=== PATIENT | female | born 1985 | race Caucasian/White ===

== ENCOUNTER 2019-11-10 08:53 | Outpatient (CLI) | payer OTHER ==
--- NOTE | 2019-11-10 09:20 | ULT ---
ULTRASOUND RETROPERITONEUM COMPLETE: (RENAL) DATE: 11/10/2019 HISTORY: Posterior and persistent hematuria in 34-year-old female FINDINGS: The right kidney measures 10.5 x 5.5 x 6.5 cm. The left kidney measures 11.5 x 5 x 5.5 cm. Both kidneys have normal parenchymal echogenicity. There is no hydronephrosis. No moderate sized or large renal cystic or solid renal lesion is identified. Cursory images of the urinary bladder demonstrate no gross abnormality. Prevoid bladder volume 40 mL. IMPRESSION: Normal
--- NOTE | 2019-11-10 10:38 | RAD ---
XR Cysto Urethrogram Voiding History: Urethral diverticulum Comparison: None. Findings: Patient was brought to the fluoroscopy suite. All questions were answered. The patient's urinary bladder was instilled retrograde with 150 cc of contrast. The patient was unabl e tolerate any more contrast within the urinary bladder. The patient was unable to void in real-time during fluoroscopy and had to go to the bathroom multiple times to evacuate the bladder. After the first attempt at bladder evacuation away from the fluoroscopy table and upon returning, there is a right-sided urethral diverticulum containing contras t which measures approximately 3 cm in size. Upon a second attempt at voiding in the bathroom and returning, there is a second diverticulum this time on the left side of the urethra as felt to be sep arate instead of a small projection from the dominant right diverticulum. This small diverticulum measures approximately 1 cm in size. Impression: Limited examination as the patient was unable to void during real-time fluoroscopy. There felt to be 2 separate diverticulum, larger on the right measuring up to 3 cm and the smaller diverticulum left measuring up to 1 cm although the possibility does exist that these are a single di verticulum with small neck as the patient was able to void in real-time. Approximate fluoroscopy time: 2 minutes
[2019-11-10] MEDS ORDERED: Iopamidol-370 76% 500 ML 1 ML ONE (16:38)
== END 2019-11-10 08:54 | disposition home or self-care (01) ==
LOC: RAD 08:53
DX: N36.1 Urethral diverticulum (principal); R80.9 Proteinuria, unspecified; N02.9 Recurrent and persistent hematuria with unspecified morphologic changes
CPT/HCPCS: 51600; 74455; 76770; Q9967

== ENCOUNTER 2020-01-19 06:03 | Observation (INO) | payer OTHER ==
[2020-01-19 06:30] LABS: #Eosinphils 0.1 thou/uL (0.0-0.7); #Lymphocytes 2.1 thou/uL (1.20-3.40); #Monocytes 0.6 thou/uL (0.11-0.59); #Neutrophils 4.9 thou/uL (1.40-6.50); %Basophils 0.5 % (0.0-1.0); %Eosinophils 1.6 % (0.0-10.0); %Lymphocytes 27.3 % (21.0-51.0); %Neutrophils 62.6 % (42.0-75.0); Hemoglobin 13.7 g/dL (12.0-16.0); Mean Corpuscular HGB CONC 34.8 g/dL (32.0-36.0); Mean Corpuscular Hemoglobin 30.6 pg (27.0-31.0); Mean Corpuscular Volume 87.9 fL (78.0-98.0); Mean Platelet Volume 7.4 fL (7.4-10.4); Platelet Count 288 thou/uL (130-400); RBC Distribution Width 11.4 % (11.5-14.5); Red Blood Cell (RBC) Count 4.46 mill/uL (4.20-5.40); White Blood Cell (WBC) Count 7.8 thou/uL (4.8-10.8)
[2020-01-19] MEDS ORDERED: metroNIDAZOLE 500 MG/100 ML BAG ONE (06:30)
[2020-01-19 06:36] LABS: INR-International Normal Ratio 0.9; PTT 29.4 sec (22.9-36.1); Prothrombin Time 12.6 sec (12.0-14.7)
[2020-01-19 06:48] LABS: Anion Gap 16 mmol/L (10-20); BUN (Urea Nitrogen) 10 mg/dL (7.0-18.7); Calc. Creatinine Clearance 197 mL/min (70-130); Calcium 9.2 mg/dL (7.8-10.44); Carbon Dioxide 21 mmol/L (22-29); Chloride 106 mmol/L (98-107); Estimated GFR-MDRD 87; Glucose 97 mg/dL (70-105); Potassium 4.2 mmol/L (3.5-5.1); Sodium 139 mmol/L (136-145)
[2020-01-19] MEDS ORDERED: HYDROmorphone 0.5 MG/0.5 ML SYRINGE ONE ×2 (07:12→14:18)
[2020-01-19] MEDS ORDERED: Fentanyl 100 MCG/2 ML VIAL ONE ×3 (07:12→12:42)
[2020-01-19] MEDS ORDERED: Bupivacaine 0.25% HCL 30 ML VIAL ONE (07:18)
[2020-01-19] MEDS ORDERED: Methylene Blue 50 MG/10 ML AMPUL ONE (07:18)
[2020-01-19] MEDS ORDERED: levETIRAcetam In NaCl (Iso-Os) 1,000 MG in Premix Bag 1 BAG IVPB SCH ×2 (07:45)
[2020-01-19] MEDS ORDERED: SUGAMMADEX SODIUM 200 MG/2 ML VIAL ONE (09:14)
[2020-01-19] MEDS ORDERED: Ondansetron HCl/PF 4 MG/2 ML Vial IVP PRN (10:16)
[2020-01-19] MEDS ORDERED: Promethazine HCl 25 MG/ML VIAL SLOW IVP PRN (10:16)
[2020-01-19] MEDS ORDERED: HYDROmorphone 2 MG/ML VIAL SLOW IVP PRN (10:16)
[2020-01-19] MEDS ORDERED: Promethazine HCl 25 MG/ML VIAL ONE (11:06)
[2020-01-19] MEDS ORDERED: Glycopyrrolate 0.2 MG/ML 5 ML SYRINGE ONE (13:48)
[2020-01-19] MEDS ORDERED: Rocuronium Bromide 10 MG/ML (10ML VIAL) ONE (13:48)
[2020-01-19] MEDS ORDERED: Lidocaine 1% PF 5 ML VIAL ONE (13:48)
[2020-01-19] MEDS ORDERED: Ketorolac Tromethamine 30 MG/ML VIAL ONE (13:48)
[2020-01-19] MEDS ORDERED: Ondansetron PF 4 MG/2 ML Vial ONE (13:48)
[2020-01-19] MEDS ORDERED: Dexamethasone 20 MG/5 ML VIAL ONE (13:48)
[2020-01-19] MEDS ORDERED: PROPOFOL 200 MG/20 ML VIAL ONE (13:48)
[2020-01-19] MEDS ORDERED: diphenhydrAMINE 50 MG/ML VIAL IVP PRN (15:10)
[2020-01-19] MEDS ORDERED: Morphine 4 MG/ML VIAL SLOW IVP PRN (15:10)
[2020-01-19] MEDS ORDERED: Hyoscyamine Sulfate SL 0.125 mg Tablet SL PRN (15:10)
[2020-01-19] MEDS ORDERED: Ondansetron PF 4 MG/2 ML Vial IVP PRN (15:10)
[2020-01-19] MEDS ORDERED: Zolpidem Tartrate 5 MG TAB PO PRN (15:10)
[2020-01-19] MEDS ORDERED: hydrALAZINE 20 MG/ML VIAL SLOW IVP PRN (15:10)
--- NOTE | 2020-01-19 16:29 | OP ---
DATE OF PROCEDURE: 01/19/2020 PREOPERATIVE DIAGNOSES: Urethral diverticulum, stress incontinence. POSTOPERATIVE DIAGNOSES: Urethral diverticulum, stress incontinence. PROCEDURES PERFORMED: Transvaginal urethral diverticulectomy, Flannery urethropexy. FINDINGS: Solitary diverticulum communicating from right to left side. ANESTHESIA: General. COMPLICATIONS: None. ESTIMATED BLOOD LOSS: 200 mL. DESCRIPTION OF PROCEDURE: After informed consent, the patient was taken to the operating room, transferred to the table. Anesthesia was established. A time-out was performed, showing correct patient, site, and procedure. Preoperative antibiotics were administered. She was prepped and draped in the lithotomy position. I began by placing a 16-[place] Botello catheter and drained the bladder. [place] retractor was deployed. I then made a U incision with the tip of the U at the distal half to two-third yanelis of the urethra and the base of the U near the bladder neck. Dissection was carried down onto the periurethral tissue, which was then opened transversely. The diverticulum was meticulously dissected noting communication around the posterior aspect of the urethra to the left side. There was no separate diverticulum on the left side. I was able to isolate the os, which was then transected. The urethra was closed with 2-0 Vicryl suture. Cystoscopy was performed showing no further urethral defects. Normal bladder mucosa. Both ureters effluxing clear urine. I then closed the periurethral tissue in a separate layer over the urethra and then closed the vagina in two layers, deep layer with Vicryl and mucosa with 2-0 chromic. Vaginal packing was then placed. She was then re-prepped in the supine position. I used electrocautery to excise her scar and then electrocautery was used to carry down to the fascia. Fascia was opened longitudinally and space of Retzius developed. 2-0 Vicryl sutures on UR6 needles, two on the right, two on the left were used to perform urethropexy connecting the periurethral tissue to Robert's ligament. The surgical field was then irrigated and fascia closed with 0 PDS suture in a running fashion. Deep tissues were closed with Vicryl and then subcutaneous with Monocryl. This was dressed with Dermabond. The patient was then awoken from anesthesia, transferred back to her hospital bed, and taken to PACU in stable condition, where she will be admitted overnight. Job ID: [id number]
[2020-01-19 16:48] VITALS: BMI 49.6
[2020-01-19] MEDS: Sodium Chloride 0.9% 1,000 ML IV SCH ×2 (16:54→22:00)
[2020-01-19] MEDS: CEFAZOLIN 2 GM in Premix Bag 1 BAG IVPB SCH (16:59)
[2020-01-19] MEDS: HYDROcodone/Acetaminophen 5/325 mg Tablet PO PRN ×2 (17:05→22:03)
[2020-01-19] MEDS: Ketorolac Tromethamine 30 MG/ML VIAL IVP SCH (18:08)
[2020-01-19] MEDS: Docusate 100 MG CAP PO SCH (21:51)
[2020-01-19] MEDS: levETIRAcetam 500 MG TAB PO SCH (21:56)
[2020-01-20] MEDS: CEFAZOLIN 2 GM in Premix Bag 1 BAG IVPB SCH ×2 (00:10→07:43)
[2020-01-20] MEDS: Ketorolac Tromethamine 30 MG/ML VIAL IVP SCH ×2 (00:10→05:20)
[2020-01-20] MEDS: HYDROcodone/Acetaminophen 5/325 mg Tablet PO PRN ×3 (02:05→11:25)
[2020-01-20 05:25] LABS: #Eosinphils 0.1 thou/uL (0.0-0.7); #Lymphocytes 1.9 thou/uL (1.20-3.40); #Monocytes 0.8 thou/uL (0.11-0.59); #Neutrophils 8.5 thou/uL (1.40-6.50); %Basophils 0.2 % (0.0-1.0); %Eosinophils 0.7 % (0.0-10.0); %Lymphocytes 17.1 % (21.0-51.0); %Monocytes 7.1 % (0.0-10.0); %Neutrophils 74.8 % (42.0-75.0); Hemoglobin 11.4 g/dL (12.0-16.0); Mean Corpuscular HGB CONC 31.5 g/dL (32.0-36.0); Mean Corpuscular Hemoglobin 28.5 pg (27.0-31.0); Mean Corpuscular Volume 90.4 fL (78.0-98.0); Mean Platelet Volume 7.5 fL (7.4-10.4); Platelet Count 167 thou/uL (130-400); RBC Distribution Width 11.5 % (11.5-14.5); Red Blood Cell (RBC) Count 4.02 mill/uL (4.20-5.40); White Blood Cell (WBC) Count 11.3 thou/uL (4.8-10.8)
[2020-01-20 05:27] LABS: Anion Gap 11 mmol/L (10-20); BUN (Urea Nitrogen) 9 mg/dL (7.0-18.7); Calc. Creatinine Clearance 219 mL/min (70-130); Calcium 7.7 mg/dL (7.8-10.44); Carbon Dioxide 21 mmol/L (22-29); Chloride 107 mmol/L (98-107); Estimated GFR-MDRD Greater than 90; Glucose 134 mg/dL (70-105); Potassium 3.7 mmol/L (3.5-5.1); Sodium 135 mmol/L (136-145)
[2020-01-20] MEDS ORDERED: levETIRAcetam 500 MG TAB PO SCH (09:00)
[2020-01-20] MEDS: Docusate 100 MG CAP PO SCH (09:00)
[2020-01-20] MEDS: traZODone HCl 50 MG TAB PO SCH ×2 (09:01→09:05)
[2020-01-20] MEDS: Lisinopril 5 MG TAB PO SCH ×2 (09:01→09:04)
[2020-01-20] MEDS: levETIRAcetam 500 MG TAB PO SCH (09:01)
[2020-01-20 11:42] VITALS: BP 105/67; TEMP 98.7
--- NOTE | 2020-01-21 13:35 | DIS ---
DATE OF ADMISSION: 01/19/2020 DATE OF DISCHARGE: 01/20/2020 DISCHARGE DIAGNOSES: Stress incontinence, urethral diverticulum. HOSPITAL COURSE: The patient underwent transvaginal urethral diverticulectomy and Flannery urethropexy on January 18. There were no surgical complications. She was monitored overnight with pain control and following morning, her pain was well controlled with oral medications, she was tolerating diet, labs were stable, she was deemed ready for discharge at that point. DISCHARGE PLAN: Follow up about 2 weeks in my office for void trial. DISCHARGE INSTRUCTIONS: Light nonstressful activities, Botello care daily, catheter to drainage. DISCHARGE MEDICATIONS: 1. Bactrim. 2. Docusate. 3. [place]. Job ID: [id number]
== END 2020-01-20 13:41 ==
LOC: SDC 06:03 → SJJU 15:35
PROVIDERS: ADMIT Urology; ATTEND Urology
PROC: 0TB Urinary System, Excision (ICD-10-PCS; principal; 2020-01-19)
DX: N36.1 Urethral diverticulum (principal); N39.3 Stress incontinence (female) (male); G40.409 Other generalized epilepsy and epileptic syndromes, not intractable, without status epilepticus; E66.9 Obesity, unspecified; Z68.42 Body mass index [BMI] 45.0-49.9, adult; Z79.899 Other long term (current) drug therapy
CPT/HCPCS: 36415; 80048; 85025; 85610; 85730; 86850; 86900; 86901; 87086; 88305; 93005; 93010; 96361; 96365; 96375; 96376; G0378; J0690; J1100; J1170; J1885; J1953; J2405; J2550; J2704; J3010; Q9968; S0020

== ENCOUNTER 2021-01-29 22:57 | Emergency (ER) | payer OTHER | END 2021-01-30 01:30 | disposition home or self-care (01) | LOC: ERS 22:57 | DX: R56.9 Unspecified convulsions (principal); S09.90XA Unspecified injury of head, initial encounter; Z79.899 Other long term (current) drug therapy; W22.8XXA Striking against or struck by other objects, initial encounter | CPT/HCPCS: 36415; 70450; 70486; 80177 ==

== ENCOUNTER 2021-02-20 12:44 | Outpatient (CLI) | payer OTHER | END 2021-02-20 12:45 | disposition home or self-care (01) | LOC: EEG 12:44 | PROVIDERS: ATTEND Family Medicine | DX: R56.9 Unspecified convulsions (principal) | CPT/HCPCS: 95816 ==

== ENCOUNTER 2021-06-08 18:46 | Observation (INO) | payer OTHER ==
[~2021-06-08 18:46] MED LIST: Iopamidol-370 76% 500 ML 1 ML ONE
[2021-06-08 19:18] LABS: Bilirubin Negative (Negative); Blood, Urine Negative (Negative); Clarity Clear (Clear); Glucose, Urine (Dipstick) Normal (Negative); Ketone, Urine Negative (Negative); Leukocyte Negative Leu/uL (Negative); Nitrite Negative (Negative); Protein, Urine (Dipstick) 10 mg/dL (Neg-Trace); Specific Gravity, Urine 1.024 (1.002-1.036); Urobilinogen Normal mg/dL (Less than 2); pH, Urine 6.5 (5.0-9.0)
[2021-06-08 19:21] LABS: #Eosinphils 0.1 thou/uL (0.0-0.7); #Lymphocytes 2.6 thou/uL (1.20-3.40); #Monocytes 0.9 thou/uL (0.11-0.59); #Neutrophils 6.1 thou/uL (1.40-6.50); %Basophils 0.1 % (0.0-1.0); %Eosinophils 0.5 % (0.0-10.0); %Lymphocytes 26.9 % (21.0-51.0); %Monocytes 9.1 % (0.0-10.0); %Neutrophils 63.3 % (42.0-75.0); Hemoglobin 13.1 g/dL (12.0-16.0); Mean Corpuscular HGB CONC 33.9 g/dL (32.0-36.0); Mean Corpuscular Hemoglobin 30.9 pg (27.0-31.0); Mean Corpuscular Volume 91.1 fL (78.0-98.0); Mean Platelet Volume 7.2 fL (7.4-10.4); Platelet Count 252 thou/uL (130-400); RBC Distribution Width 11.6 % (11.5-14.5); Red Blood Cell (RBC) Count 4.24 mill/uL (4.20-5.40); White Blood Cell (WBC) Count 9.7 thou/uL (4.8-10.8)
[2021-06-08 19:58] LABS: ALT (SGPT) 25 U/L (8-55); AST (SGOT) 16 U/L (5-34); Alkaline Phosphatase 53 U/L (40-110); Anion Gap 12 mmol/L (10-20); BUN (Urea Nitrogen) 10 mg/dL (7.0-18.7); Bilirubin, Total 0.7 mg/dL (0.2-1.2); Calc. Creatinine Clearance 0 mL/min (70-130); Carbon Dioxide 25 mmol/L (22-29); Chloride 106 mmol/L (98-107); Globulin 3.1 g/dL (2.4-3.5); Glucose 105 mg/dL (70-105); Lipase 14 U/L (8-78); Potassium 3.8 mmol/L (3.5-5.1); Protein, Total 7.1 g/dL (6.0-8.3); Sodium 139 mmol/L (136-145)
[2021-06-08] MEDS ORDERED: Ondansetron PF 4 MG/2 ML Vial ONE (20:56)
[2021-06-08 21:06] LABS: BHCG - Serum Negative (NEGATIVE); Pregs Control Background? CLEAR/WHITE (CLR/WHITE); Pregs Control Bar Appear? YES (CONTROL BAR)
[2021-06-08] MEDS ORDERED: Ketorolac Tromethamine 30 MG/ML VIAL ONE (21:22)
[2021-06-08] MEDS ORDERED: Morphine 4 MG/ML VIAL ONE (22:34)
[2021-06-08] MEDS ORDERED: Piperacillin/Tazobactam 4.5 GM VIAL ONE (23:12)
[2021-06-09] MEDS ORDERED: Morphine 4 MG/ML VIAL ONE (00:13)
[2021-06-09 00:32] LABS: SARS-CoV-2 NAA Rapid Test DETECTED (NotDetected)
[2021-06-09] MEDS: Sodium Chloride 0.9% 1,000 ML IV SCH ×2 (01:07→08:31)
[2021-06-09] MEDS: Morphine 4 MG/ML VIAL SLOW IVP PRN ×2 (01:18→12:24)
[2021-06-09] MEDS: Ondansetron PF 4 MG/2 ML Vial IVP PRN ×2 (01:18→09:08)
[2021-06-09 01:38] VITALS: BMI 48.3
[2021-06-09] MEDS ORDERED: Piperacillin/Tazobactam 3.375 GM in Sodium Chloride 0.9% 100 ML IVPB SCH ×4 (03:00→14:00)
[2021-06-09] MEDS ORDERED: Non-Formulary Item 1 EACH (Albuterol Sulfate Hfa (Or) 200 PUFF Inh) INH PRN (07:54)
[2021-06-09] MEDS ORDERED: Ondansetron ODT 4 MG TAB PO PRN (07:56)
[2021-06-09] MEDS ORDERED: Morphine 2 MG/ML VIAL SLOW IVP PRN (07:56)
[2021-06-09] MEDS ORDERED: Morphine 4 MG/ML VIAL SLOW IVP PRN ×2 (07:56→08:17)
[2021-06-09] MEDS ORDERED: hydrALAZINE 20 MG/ML VIAL SLOW IVP PRN (07:56)
[2021-06-09] MEDS ORDERED: Ketorolac Tromethamine 30 MG/ML VIAL IVP PRN (07:56)
[2021-06-09] MEDS ORDERED: Ketorolac Tromethamine 30 MG/ML VIAL IVP SCH (08:00)
[2021-06-09] MEDS ORDERED: Lactated Ringer's 1,000 ML IV SCH (08:00)
[2021-06-09] MEDS ORDERED: Albuterol 200 PUFF (6.7GM INHALER) INH PRN (08:18)
[2021-06-09] MEDS ORDERED: Oxybutynin 5 MG TAB PO SCH (09:00)
[2021-06-09] MEDS ORDERED: Levothyroxine Sodium 50 MCG TAB PO SCH ×2 (09:00)
[2021-06-09] MEDS ORDERED: Famotidine/PF 20 mg/2ml Vial SLOW IVP SCH (09:00)
[2021-06-09] MEDS ORDERED: levETIRAcetam 500 MG TAB PO SCH ×3 (09:00)
[2021-06-09] MEDS: Acetaminophen 500 MG TAB PO PRN ×2 (09:10→16:21)
[2021-06-09] MEDS: Oxybutynin 5 MG TAB PO SCH ×2 (11:34→16:21)
[2021-06-09] MEDS ORDERED: Midazolam HCl 2 mg/2 ml Vial ONE (12:25)
[2021-06-09] MEDS ORDERED: Fentanyl 250 MCG/5 ML VIAL ONE ×2 (12:25→14:32)
[2021-06-09] MEDS ORDERED: Promethazine HCl 25 MG/ML VIAL IVPB PRN (12:32)
[2021-06-09] MEDS ORDERED: Ondansetron HCl/PF 4 MG/2 ML Vial IVP PRN (12:32)
[2021-06-09] MEDS ORDERED: Promethazine HCl 25 MG/ML VIAL IM PRN (12:32)
[2021-06-09] MEDS ORDERED: Meperidine HCl/PF 25 MG/ML VIAL SLOW IVP PRN (12:32)
[2021-06-09] MEDS ORDERED: Bupivacaine PF 0.5% 30 ML VIAL ONE (13:00)
[2021-06-09] MEDS ORDERED: Xylocaine 1% w/ Epi 1:100K 10 ML VIAL ONE (13:00)
[2021-06-09] MEDS ORDERED: Lidocaine 2% Jelly 5 ML TUBE ONE (13:26)
[2021-06-09] MEDS ORDERED: Ondansetron PF 4 MG/2 ML Vial ONE (13:28)
[2021-06-09] MEDS ORDERED: diphenhydrAMINE 50 MG/ML VIAL ONE (13:28)
[2021-06-09] MEDS ORDERED: PROPOFOL 200 MG/20 ML VIAL ONE (13:28)
[2021-06-09] MEDS ORDERED: Glycopyrrolate 0.2 MG/ML 5 ML SYRINGE ONE (13:28)
[2021-06-09] MEDS ORDERED: Rocuronium Bromide 10 MG/ML (10ML VIAL) ONE (13:28)
[2021-06-09] MEDS ORDERED: Ketorolac Tromethamine 30 MG/ML VIAL ONE (13:28)
[2021-06-09] MEDS ORDERED: Dexamethasone 20 MG/5 ML VIAL ONE (13:28)
[2021-06-09] MEDS ORDERED: Lidocaine 1% PF 5 ML VIAL ONE (13:28)
[2021-06-09] MEDS ORDERED: Ibuprofen 600 MG TAB PO PRN (13:29)
[2021-06-09] MEDS ORDERED: traMADol HCl 50 MG TAB PO PRN (13:29)
[2021-06-09] MEDS ORDERED: Meperidine HCl/PF 25 MG/ML VIAL ONE (14:33)
[2021-06-09 15:11] VITALS: BP 105/70; TEMP 97.5
[2021-06-09] MEDS ORDERED: Enoxaparin Sodium 40 MG/0.4 ML SYRINGE SC SCH (21:00)
== END 2021-06-09 18:07 ==
LOC: ERS 18:46 → SURG A 22:53 → EEVIPCON 22:53
PROVIDERS: ADMIT Specialist; ATTEND Specialist
PROC: 0DTJ4ZZ Resection of Appendix, Percutaneous Endoscopic Approach (ICD-10-PCS; principal; 2021-06-09)
DX: K35.80 Unspecified acute appendicitis (principal); U07.1 COVID-19; E03.9 Hypothyroidism, unspecified; J45.909 Unspecified asthma, uncomplicated; G40.909 Epilepsy, unspecified, not intractable, without status epilepticus; E66.9 Obesity, unspecified; Z68.42 Body mass index [BMI] 45.0-49.9, adult; Z87.891 Personal history of nicotine dependence; Z79.899 Other long term (current) drug therapy
CPT/HCPCS: 36415; 74177; 80053; 81003; 83690; 84703; 85025; 88304; A4649; J1100; J1200; J1885; J2175; J2250; J2270; J2405; J2543; J2704; J3010; J3490; J7050; Q9967; S0020; S0028; U0002

== ENCOUNTER 2021-08-03 10:14 | Emergency (ER) | payer OTHER ==
[2021-08-03 10:59] LABS: Bilirubin Negative (Negative); Blood, Urine Negative (Negative); Clarity Clear (Clear); Glucose, Urine (Dipstick) Normal (Negative); Ketone, Urine Negative (Negative); Leukocyte Negative Leu/uL (Negative); Nitrite Negative (Negative); Protein, Urine (Dipstick) Negative (Neg-Trace); Specific Gravity, Urine 1.007 (1.002-1.036); Urobilinogen Normal mg/dL (Less than 2)
[2021-08-03 11:09] LABS: #Eosinphils 0.1 thou/uL (0.0-0.7); #Lymphocytes 1.9 thou/uL (1.20-3.40); #Monocytes 0.4 thou/uL (0.11-0.59); #Neutrophils 2.7 thou/uL (1.40-6.50); %Basophils 0.1 % (0.0-1.0); %Eosinophils 1.1 % (0.0-10.0); %Lymphocytes 36.9 % (21.0-51.0); %Monocytes 8.3 % (0.0-10.0); %Neutrophils 53.6 % (42.0-75.0); Hemoglobin 13.6 g/dL (12.0-16.0); Mean Corpuscular HGB CONC 33.3 g/dL (32.0-36.0); Mean Corpuscular Volume 93.1 fL (78.0-98.0); Mean Platelet Volume 7.3 fL (7.4-10.4); Platelet Count 266 thou/uL (130-400); RBC Distribution Width 11.8 % (11.5-14.5); Red Blood Cell (RBC) Count 4.39 mill/uL (4.20-5.40); White Blood Cell (WBC) Count 5.1 thou/uL (4.8-10.8)
[2021-08-03 11:25] LABS: ALT (SGPT) 26 U/L (8-55); AST (SGOT) 19 U/L (5-34); Albumin 4.1 g/dL (3.5-5.0); Alkaline Phosphatase 48 U/L (40-110); Anion Gap 9 mmol/L (10-20); BUN (Urea Nitrogen) 5 mg/dL (7.0-18.7); Bilirubin, Total 0.4 mg/dL (0.2-1.2); Calc. Creatinine Clearance 0 mL/min (70-130); Calcium 8.9 mg/dL (7.8-10.44); Carbon Dioxide 24 mmol/L (22-29); Chloride 107 mmol/L (98-107); Globulin 2.8 g/dL (2.4-3.5); Glucose 103 mg/dL (70-105); Potassium 4.2 mmol/L (3.5-5.1); Protein, Total 6.9 g/dL (6.0-8.3); Sodium 136 mmol/L (136-145)
[2021-08-03] MEDS ORDERED: Metoclopramide HCl 10 MG/2 ML VIAL ONE (11:29)
[2021-08-03] MEDS ORDERED: diphenhydrAMINE 50 MG/ML VIAL ONE (11:29)
[2021-08-03] MEDS ORDERED: Ketorolac Tromethamine 30 MG/ML VIAL ONE (11:29)
== END 2021-08-03 13:26 | disposition home or self-care (01) ==
LOC: ERS 10:14
DX: R56.9 Unspecified convulsions (principal); R51.9 Headache, unspecified; E03.9 Hypothyroidism, unspecified; E78.5 Hyperlipidemia, unspecified; J45.909 Unspecified asthma, uncomplicated; Z87.891 Personal history of nicotine dependence; Z79.899 Other long term (current) drug therapy
CPT/HCPCS: 36415; 70450; 80053; 81003; 84146; 85025; 96365; 96375; J1200; J1885; J2765

== ENCOUNTER 2021-11-14 12:05 | Emergency (ER) | payer OTHER ==
[2021-11-14 12:40] LABS: #Eosinphils 0.1 thou/uL (0.0-0.7); #Lymphocytes 2.1 thou/uL (1.20-3.40); #Monocytes 0.4 thou/uL (0.11-0.59); #Neutrophils 3.1 thou/uL (1.40-6.50); %Basophils 0.2 % (0.0-1.0); %Eosinophils 0.9 % (0.0-10.0); %Lymphocytes 37.7 % (21.0-51.0); %Monocytes 6.4 % (0.0-10.0); %Neutrophils 54.9 % (42.0-75.0); Hemoglobin 13.4 g/dL (12.0-16.0); Mean Corpuscular HGB CONC 34.5 g/dL (32.0-36.0); Mean Corpuscular Hemoglobin 31.5 pg (27.0-31.0); Mean Corpuscular Volume 91.3 fL (78.0-98.0); Mean Platelet Volume 7.2 fL (7.4-10.4); Platelet Count 238 thou/uL (130-400); RBC Distribution Width 11.7 % (11.5-14.5); Red Blood Cell (RBC) Count 4.25 mill/uL (4.20-5.40); White Blood Cell (WBC) Count 5.6 thou/uL (4.8-10.8)
[2021-11-14 12:56] LABS: ALT (SGPT) 20 U/L (8-55); AST (SGOT) 15 U/L (5-34); Alkaline Phosphatase 50 U/L (40-110); Anion Gap 12 mmol/L (10-20); BUN (Urea Nitrogen) 11 mg/dL (7.0-18.7); Bilirubin, Total 0.3 mg/dL (0.2-1.2); Calc. Creatinine Clearance 0 mL/min (70-130); Calcium 8.8 mg/dL (7.8-10.44); Carbon Dioxide 26 mmol/L (22-29); Chloride 106 mmol/L (98-107); Estimated GFR 115; Globulin 2.7 g/dL (2.4-3.5); Glucose 110 mg/dL (70-105); Potassium 4.1 mmol/L (3.5-5.1); Protein, Total 6.7 g/dL (6.0-8.3); Sodium 140 mmol/L (136-145)
[2021-11-14] MEDS ORDERED: Aspirin Chewable 81 MG TAB ONE (14:01)
== END 2021-11-14 14:05 | disposition home or self-care (01) ==
LOC: ERS 12:05
DX: I82.462 Acute embolism and thrombosis of left calf muscular vein (principal); E03.9 Hypothyroidism, unspecified; E78.5 Hyperlipidemia, unspecified; J45.909 Unspecified asthma, uncomplicated; Z87.891 Personal history of nicotine dependence; Z79.899 Other long term (current) drug therapy
CPT/HCPCS: 36415; 80053; 85025

== ENCOUNTER 2021-11-24 11:01 | Outpatient (CLI) | payer OTHER | END 2021-11-24 11:02 | disposition home or self-care (01) | LOC: MRI 11:01 | PROVIDERS: ATTEND Family Medicine | DX: M25.562 Pain in left knee (principal); M24.19 Other articular cartilage disorders, other specified site ==

== ENCOUNTER 2021-12-19 12:11 | Outpatient (CLI) | payer OTHER | END 2021-12-19 12:12 | disposition home or self-care (01) | LOC: BICULT 12:11 | PROVIDERS: ATTEND Family Medicine | DX: I82.812 Embolism and thrombosis of superficial veins of left lower extremity (principal); I82.452 Acute embolism and thrombosis of left peroneal vein ==

== ENCOUNTER 2022-02-21 15:21 | Emergency (ER) | payer OTHER ==
[2022-02-21] MEDS ORDERED: levETIRAcetam 2,000 MG in Sodium Chloride 0.9% 100 ML IVPB SCH (16:45)
[2022-02-21] MEDS ORDERED: Acetaminophen 500 MG TAB ONE (17:25)
== END 2022-02-21 18:50 ==
LOC: ERS 15:21
DX: R56.9 Unspecified convulsions (principal); R51.9 Headache, unspecified; E03.9 Hypothyroidism, unspecified; E78.5 Hyperlipidemia, unspecified; Z87.891 Personal history of nicotine dependence
CPT/HCPCS: 36416; 70450; 72125; 93005; J1953; J3490

== ENCOUNTER 2022-06-04 10:15 | Emergency (ER) | payer OTHER ==
[2022-06-04] MEDS ORDERED: levETIRAcetam 500 MG/5 ML VIAL ONE ×2 (11:15→11:18)
[2022-06-04 11:26] LABS: #Lymphocytes 1.8 thou/uL (1.20-3.40); #Monocytes 0.4 thou/uL (0.11-0.59); #Neutrophils 2.5 thou/uL (1.40-6.50); %Basophils 0.1 % (0.0-1.0); %Eosinophils 0.8 % (0.0-10.0); %Lymphocytes 37.1 % (21.0-51.0); %Monocytes 8.2 % (0.0-10.0); %Neutrophils 53.6 % (42.0-75.0); Hemoglobin 13.1 g/dL (12.0-16.0); Mean Corpuscular HGB CONC 35.3 g/dL (32.0-36.0); Mean Corpuscular Hemoglobin 31.7 pg (27.0-31.0); Mean Corpuscular Volume 89.9 fl (78.0-98.0); Mean Platelet Volume 8.1 fL (7.4-10.4); Platelet Count 181 10x3/uL (130-400); RBC Distribution Width 11.1 % (11.5-14.5); Red Blood Cell (RBC) Count 4.14 mill/uL (4.20-5.40); White Blood Cell (WBC) Count 4.7 10x3/uL (4.8-10.8)
[2022-06-04 11:37] LABS: Bilirubin Negative (Negative); Blood, Urine Negative (Negative); Clarity Clear (Clear); Glucose, Urine (Dipstick) Normal (Negative); Ketone, Urine Negative (Negative); Leukocyte Negative Leu/uL (Negative); Nitrite Negative (Negative); Protein, Urine (Dipstick) Negative (Neg-Trace); Specific Gravity, Urine 1.011 (1.002-1.036); Urobilinogen Normal mg/dL (Less than 2); pH, Urine 6.5 (5.0-9.0)
[2022-06-04 11:43] LABS: Pregnancy Test - Urine (BHCG) Negative (Negative); Pregu Control Background? CLEAR/WHITE (CLR/WHITE); Pregu Control Bar Appear? YES (CONTROL BAR); Specific Gravity 1.011 (1.002-1.036)
[2022-06-04 11:49] LABS: Anion Gap 10 mmol/L (10-20); BUN (Urea Nitrogen) 11 mg/dL (7.0-18.7); Calc. Creatinine Clearance 0 mL/min (70-130); Carbon Dioxide 25 mmol/L (22-29); Chloride 107 mmol/L (98-107); Potassium 4.2 mmol/L (3.5-5.1); Sodium 138 mmol/L (136-145)
[2022-06-04 11:50] LABS: ALT (SGPT) 15 U/L (8-55); AST (SGOT) 16 U/L (5-34); Alkaline Phosphatase 39 U/L (40-110); Bilirubin, Total 0.4 mg/dL (0.2-1.2); Estimated GFR 111; Globulin 2.6 g/dL (2.4-3.5); Glucose 92 mg/dL (70-105); Protein, Total 6.6 g/dL (6.0-8.3)
[2022-06-04] MEDS ORDERED: Ketorolac Tromethamine 30 MG/ML VIAL ONE (12:21)
[2022-06-04] MEDS ORDERED: Acetaminophen 500 MG TAB ONE (12:21)
== END 2022-06-04 12:33 ==
LOC: ERS 10:15
DX: R56.9 Unspecified convulsions (principal); D72.819 Decreased white blood cell count, unspecified; E03.9 Hypothyroidism, unspecified; E78.5 Hyperlipidemia, unspecified; Z79.82 Long term (current) use of aspirin; Z79.899 Other long term (current) drug therapy; Z87.891 Personal history of nicotine dependence
CPT/HCPCS: 71045; 80053; 81003; 81025; 84484; 85025; 93005; 96365; 96375; J1885; J1953